=== PATIENT | male | born 1955 | race African-American/Black ===

== ENCOUNTER 2017-02-20 17:52 | Inpatient (IN) | payer OTHER ==
[2017-02-20 20:41] VITALS: BMI 21.6
--- NOTE | 2017-02-20 21:41 | HP ---
COWS - Scale Resting Pulse: 0= [place] 80 or Below Sweatin= Chills/Flushing Restless Observation: 3= Extraneous Movement Pupil Size: 0= Normal to Room Light Bone or Joint Aches: 2= Severe Diffuse Aches Runny Nose/ Eye Tearin= Runny Nose/Eyes GI Upset > 30mins: 2= Nausea/Diarrhea Tremor Observation: 2= Slight Tremor Visible Yawning Observation: 0= None Anxiety or Irritability: 2=Irritable/Anxious Goose Flesh Skin: 0=Smooth Skin COWS Score: 14 Admission [facility] Chief Complaint: withdrawal sx Allergies/Adverse Reactions: Allergies Allergy/AdvReac Type Severity Reaction Status Date / Time No Known Allergies Allergy Verified 02/20/17 21:37 History of Present Illness: 62 years old male with long history of opiate nicotine dependence has hypertension diabetes ii hyperlipidemea denies mental illness is admitted to detox Exam Limitations: No Limitations - Ebola screening Have you traveled outside of the country in the last 21 days: No (N) Have you had contact with anyone from an Ebola affected area: No Have you been sick,other than usual withdrawal symptoms: No Do you have a fever: No - Review of Systems Constitutional: Loss of Appetite, Changes in sleep, Unintentional Wgt. Loss, Unexplained wgt Loss EENT: reports: Blurred Vision (eye glasses), Dental Problems (missing teeth) Respiratory: reports: No Symptoms reported Cardiac: reports: No Symptoms Reported GI: reports: Nausea, Poor Appetite, Poor Fluid Intake, Abdominal cramping : reports: Urgency Musculoskeletal: reports: Back Pain, Joint Pain, Muscle Pain, Neck Pain Integumentary: reports: No Symptoms Reported Neuro: reports: Tremors Endocrine: reports: No Symptoms Reported Hematology: reports: No Symptoms Reported Psychiatric: reports: Judgement Intact, Mood/Affect Appropiate, Orientated x3 Other Systems: Reviewed and Negative Patient History - Patient Medical History Hx Anemia: No Hx Asthma: No Hx Chronic Obstructive Pulmonary Disease (COPD): No Hx Cancer: No Hx Cardiac Disorders: No Hx Congestive Heart Failure: No Hx Hypertension: Yes (ON MEDS) Hx Hypercholesterolemia: Yes Hx Pacemaker: No HX Cerebrovascular Accident: No Hx Seizures: No Hx Dementia: No Hx Diabetes: Yes (NIDDM) Hx Gastrointestinal Disorders: No Hx Liver Disease: No Hx Genitourinary Disorders: No Hx Sexually Transmitted Disorders: No Hx Renal Disease (ESRD): No Hx Thyroid Disease: No Hx Human Immunodeficiency Virus (HIV): No Hx Hepatitis C: No Hx Depression: No Hx Suicide Attempt: No (DENIES) Hx Bipolar Disorder: No Hx Schizophrenia: No - Patient Surgical History Past Surgical History: Yes Hx Neurologic Surgery: No Hx Cataract Extraction: No Hx Cardiac Surgery: No Hx Lung Surgery: No Hx Breast Surgery: No Hx Breast Biopsy: No Hx Abdominal Surgery: No Hx Appendectomy: Yes (at age 17) Hx Cholecystectomy: No Hx Genitourinary Surgery: No Hx Orthopedic Surgery: No Anesthesia Reaction: No - PPD History Previous Implant?: Yes Documented Results: Negative w/o proof Implanted On Prior R Admission?: No Date: 04/01/15 PPD to be Administered?: Yes - Smoking Cessation Smoking history: Current every day smoker Have you smoked in the past 12 months: Yes Aproximately how many cigarettes per day: 7 Cigars Per Day: 0 Hx Chewing Tobacco Use: No Initiated information on smoking cessation: Yes 'Breaking Loose' booklet given: 02/20/17 - Substance & Tx. History Hx Alcohol Use: No Hx Substance Use: Yes Substance Use Type: Cocaine, Opiates Hx Substance Use Treatment: Yes (2014 [facility]) - Substances Abused Heroin Route: Inhalation Frequency: Daily Amount used: 15 bags Age of first use: 12 Date of Last Use: 02/20/17 Family Disease History - Family Disease History Family Disease History: Diabetes: Father (), Heart Disease: Sister, CA: Mother (BREAST-) Admission Physical Exam BHS - Vital Signs Vital Signs: Vital Signs - 24 hr 02/20/17 20:36 Temperature 98.1 F Pulse Rate 61 Respiratory 20 Rate Blood Pressure 116/72 - Physical General Appearance: Yes: Appropriately Dressed, Mild Distress, Thin, Tremorous, Irritable, Sweating, Anxious HEENTM: Yes: Hearing grossly Normal, Normal ENT Inspection, Normocephalic, Normal Voice Respiratory: Yes: Chest Non-Tender, Lungs Clear, Normal Breath Sounds, No Respiratory Distress, No Accessory Muscle Use Neck: Yes: Supple, Trachea in good position Breast: Yes: Breasts Symetrical Cardiology: Yes: Regular Rhythm, Regular Rate, S1, S2 Abdominal: Yes: Non Tender, Soft, Increased Bowel Sounds Genitourinary: Yes: Within Normal Limits Back: Yes: Normal Inspection Musculoskeletal: Yes: full range of Motion, Gait Steady, Back pain, Muscle Pain Extremities: Yes: Normal Inspection, Normal Range of Motion, Non-Tender, Tremors Neurological: Yes: Fully Oriented, Alert, Motor Strength 5/5, Normal Mood/Affect , Normal Response Integumentary: Yes: Warm Lymphatic: Yes: Within Normal Limits - Diagnostic (1) Opioid dependence with withdrawal Current Visit: Yes Status: Acute (2) Essential hypertension Current Visit: Yes Status: Chronic (3) bph Current Visit: Yes Status: Chronic (4) Diabetes mellitus type II, controlled, with no complications Current Visit: Yes Status: Chronic Qualifiers: Diabetes mellitus halfway insulin use: without terminal press operator use Qualified Code(s): E11.9 - Type 2 diabetes mellitus without complications (5) Hyperlipidemia Current Visit: Yes Status: Chronic Qualifiers: Hyperlipidemia type: pure hypercholesterolemia Qualified Code(s): E78.00 - Pure hypercholesterolemia, unspecified; E78.0 - Pure hypercholesterolemia (6) Weight loss Current Visit: Yes Status: Acute (7) Nicotine dependence Current Visit: Yes Status: Acute Qualifiers: Nicotine product type: cigarettes Substance use status: in withdrawal Qualified Code(s): F17.213 - Nicotine dependence, cigarettes, with withdrawal Cleared for Admission [facility] - Detox or Rehab [facility] Level of Care: Medically Managed Detox Regimen/Protocol: Methadone [facility] Breath Alcohol Content Breath Alcohol Content: 0 Urine Drug Screen - Results Drug Screen Negative: No Urine Drug Screen Results: BETTE-Cocaine, OPI-Opiates
[2017-02-20] MEDS ORDERED: diazePAM 5 MG TABLET PO PRN (21:45)
[2017-02-20] MEDS ORDERED: NICOTINE POLACRILEX 2 MG GUM BC PRN (21:45)
[2017-02-20] MEDS ORDERED: METHADONE HCL 10 MG TABLET (FOR DETOX USE ONLY) PO ONE ×2 (21:45→23:00)
[2017-02-20] MEDS ORDERED: MAG HYDROX/AL HYDROX/SIMETH 30 ML UNIT-DOSE CUP PO PRN (21:45)
[2017-02-20] MEDS ORDERED: MENTHOL/PHENOL 1 EACH UD MM PRN (21:45)
[2017-02-20] MEDS ORDERED: LOPERAMIDE HCL 2 MG CAPSULE PO PRN (21:45)
[2017-02-20] MEDS ORDERED: MAGNESIUM CITRATE 300 ML BOTTLE PO PRN (21:45)
[2017-02-20] MEDS ORDERED: diphenhydrAMINE HCL 50 MG CAPSULE PO PRN (21:45)
[2017-02-20] MEDS ORDERED: P-EPHED 60MG/TRIPROLIDI 2.5MG TABLET PO PRN (21:45)
[2017-02-20] MEDS ORDERED: guaiFENesin/D-METHORPHAN HB 10 ML UNIT-DOSE CUPS PO PRN (21:45)
[2017-02-20] MEDS ORDERED: MAGNESIUM HYDROX 2400MG/30ML ORAL SUSPENSION 30 ML CUP PO PRN (21:45)
[2017-02-20] MEDS ORDERED: ACETAMINOPHEN 325 MG TABLET (FP) PO PRN (21:45)
[2017-02-20] MEDS: THIAMINE HCL 100 MG TABLET (FP) PO SCH (23:46)
[2017-02-21] MEDS: INSULIN SLIDING SCALE (NOVOLOG) 1 VIAL SQ SCH ×4 (06:15→22:28)
[2017-02-21] MEDS ORDERED: INSULIN (NOVOLOG) ASPART 100 UNITS/ML 10ML VIAL ONE ×2 (06:16→11:19)
[2017-02-21] MEDS ORDERED: metFORMIN HCL 500 MG TABLET (FP) PO SCH (07:00)
[2017-02-21 09:45] LABS: MCH 31.2 pg (25.7-33.7); MCHC 32.6 g/dl (32.0-35.9); MEAN CELL VOLUME 95.6 fl (80-96); MEAN PLT VOLUME 9.1 fl (7.5-11.1); PLATELET COUNT 215 K/MM3 (134-434); RDW 14.4 % (11.9-15.9); WHITE BLOOD COUNT 4.8 K/mm3 (4.0-10.0)
[2017-02-21] MEDS ORDERED: NICOTINE 14 MG/24 HOURS TOPICAL PATCH TD SCH (10:00)
[2017-02-21] MEDS ORDERED: PRENATAL VITAMINS W/ FOLIC ACID TABLET (FP) PO SCH (10:00)
[2017-02-21] MEDS ORDERED: ENALAPRIL MALEATE 5 MG TABLET (FP) PO SCH (10:00)
[2017-02-21] MEDS ORDERED: ASPIRIN 81 MG CHEWABLE TABLETS PO SCH (10:00)
[2017-02-21] MEDS ORDERED: METHADONE HCL 10 MG TABLET (FOR DETOX USE ONLY) PO ONE (10:00)
[2017-02-21 10:24] LABS: ALBUMIN 3.2 g/dl (3.4-5.0); ALK PHOS 108 U/L (45-117); ANION GAP 6 (8-16); BILIRUBIN,TOTAL 0.5 mg/dL (0.2-1.0); CALCIUM 9.3 mg/dL (8.5-10.1); CO2 32 mmol/L (21-32); CREATININE 1.1 mg/dL (0.7-1.3); SGOT/AST 21 U/L (15-37); SGPT/ALT 36 U/L (12-78); TOT PROT 6.1 g/dl (6.4-8.2)
[2017-02-21 10:40] LABS: GLUCOSE,RANDOM 524 mg/dL (74-106)
[2017-02-21] MEDS: PATIENT'S OWN MEDICATION (NON-FORMULARY) (Sitagliptin Phos/Metformin Hcl [Janumet 50-500 M PO SCH ×2 (11:17→16:48)
--- NOTE | 2017-02-21 11:49 | PN ---
S COWS - Scale Resting Pulse: 0= [place] 80 or Below Sweatin= Chills/Flushing Restless Observation: 3= Extraneous Movement Pupil Size: 2= Moderately Dilated Bone or Joint Aches: 4=Acute Joint/Muscle Pain Runny Nose/ Eye Tearin= Nasal Congestion GI Upset > 30mins: 1= Stomach Cramp Tremor Observation of Outstretched Hands: 1= Tremor [place], Not Seen Yawning Observation: 1= 1-2x During Session Anxiety or Irritability: 2=Irritable/Anxious Goose Flesh Skin: 0=Smooth Skin COWS Score: 16 S Progress Note (SOAP) Subjective: ANXIETY,SWEATS,TREMORS,FATIGUE. Objective: 02/21/17 11:49 Vital Signs Temperature 98.9 F 02/21/17 09:13 Pulse Rate 87 02/21/17 09:13 Respiratory Rate 16 02/21/17 09:13 Blood Pressure 107/72 02/21/17 09:13 O2 Sat by Pulse Oximetry (%) Laboratory Last Values WBC 4.8 K/mm3 (4.0-10.0) 02/21/17 07:00 RBC 4.14 M/mm3 (4.00-5.60) 02/21/17 07:00 Hgb 12.9 GM/dL (11.7-16.9) 02/21/17 07:00 Hct 39.6 % (35.4-49) 02/21/17 07:00 MCV 95.6 fl (80-96) 02/21/17 07:00 MCH 31.2 pg (25.7-33.7) 02/21/17 07:00 MCHC 32.6 g/dl (32.0-35.9) 02/21/17 07:00 RDW 14.4 % (11.9-15.9) 02/21/17 07:00 Plt Count 215 K/MM3 (134-434) 02/21/17 07:00 MPV 9.1 fl (7.5-11.1) 02/21/17 07:00 Sodium 135 mmol/L (136-145) L 02/21/17 07:00 Potassium 5.0 mmol/L (3.5-5.1) 02/21/17 07:00 Chloride 97 mmol/L (98-107) L 02/21/17 07:00 Carbon Dioxide 32 mmol/L (21-32) 02/21/17 07:00 Anion Gap 6 (8-16) L 02/21/17 07:00 BUN 13 mg/dL (7-18) 02/21/17 07:00 Creatinine 1.1 mg/dL (0.7-1.3) D 02/21/17 07:00 Creat Clearance w eGFR > 60 (>60) 02/21/17 07:00 POC Glucometer 334 UNITS (()) 02/21/17 11:16 Random Glucose 524 mg/dL (74-106) H* D 02/21/17 07:00 Calcium 9.3 mg/dL (8.5-10.1) 02/21/17 07:00 Total Bilirubin 0.5 mg/dL (0.2-1.0) D 02/21/17 07:00 AST 21 U/L (15-37) 02/21/17 07:00 ALT 36 U/L (12-78) 02/21/17 07:00 Alkaline Phosphatase 108 U/L (45-117) D 02/21/17 07:00 Total Protein 6.1 g/dl (6.4-8.2) L 02/21/17 07:00 Albumin 3.2 g/dl (3.4-5.0) L D 02/21/17 07:00 Assessment: 02/21/17 11:49 WITHDRAWAL SX Plan: CONTINUE DETOX
--- NOTE | 2017-02-21 12:52 | EKG ---
Test Reason : Blood Pressure : / mmHG Vent. Rate : 054 BPM Atrial Rate : 054 BPM P-R Int : 166 ms QRS Dur : 088 ms QT Int : 430 ms P-R-T Axes : 063 029 045 degrees QTc Int : 407 ms SINUS BRADYCARDIA PROBABLE ATRIAL ABNORMALITY MINIMAL VOLTAGE CRITERIA FOR LVH, MAY BE NORMAL VARIANT BORDERLINE ECG NO PREVIOUS ECGS AVAILABLE REPEAT EKG IF CLINICALLY INDICATED Confirmed by PARMINDER ARCE MD ([id number]) on 02/21/2017 12:52:05 PM Referred By: Confirmed By:PARMINDER ARCE MD
[2017-02-21] MEDS: THIAMINE HCL 100 MG TABLET (FP) PO SCH (22:28)
[2017-02-22] MEDS ORDERED: INSULIN (NOVOLOG MIX 70/30) 100 UNITS/ML MDV SQ SCH (07:00)
[2017-02-22] MEDS ORDERED: INSULIN (NOVOLOG) ASPART 100 UNITS/ML 10ML VIAL ONE (07:25)
[2017-02-22] MEDS: PATIENT'S OWN MEDICATION (NON-FORMULARY) (Sitagliptin Phos/Metformin Hcl [Janumet 50-500 M PO SCH (07:28)
[2017-02-22] MEDS: INSULIN SLIDING SCALE (NOVOLOG) 1 VIAL SQ SCH (07:28)
[2017-02-22 09:55] VITALS: BP 112/78; PULSE 69; TEMP 97.5
[2017-02-22] MEDS ORDERED: METHADONE HCL 5 MG TABLET (FOR DETOX USE ONLY) PO ONE (10:00)
--- NOTE | 2017-02-22 11:02 | DS ---
[facility] Detox Discharge Summary Admission Date: 02/20/17 Discharge Date: 02/22/17 - History Present History: Opioid Dependence Additional Comments: PT DECLINED TO CONTINUE WITH DETOX EXHIBITING LACK OF READINESS FOR TREATMENT DESPITE ALL EFFORTS BY GEOPHYSICAL PROSPECTOR AND COUNSELOR, JUAN TO ENCOURAGE HIM TO COMPLETE AND GO TO THE NEXT STEP OF REHAB. ALERT O X 3. IN NAD. PT WILL HOPEFULLY FOLLOW UP WITH AFTER CARE REFERRED. PT TO FOLLOW UP WITH PMD AT [facility] FOR MEDICAL MANAGEMENT OF HIS COMORBID CONDITIONS. Pertinent Past History: DM HTN HYPERLIPIDEMIA WEIGHT LOSS - Physical Exam Results Vital Signs: Vital Signs Temperature 97.5 F L 02/22/17 09:54 Pulse Rate 69 02/22/17 09:54 Respiratory Rate 18 02/22/17 09:54 Blood Pressure 112/78 02/22/17 09:54 O2 Sat by Pulse Oximetry (%) Pertinent Admission Physical Exam Findings: WITHDRAWAL SX Vital Signs Temperature 97.5 F L 02/22/17 09:54 Pulse Rate 69 02/22/17 09:54 Respiratory Rate 18 02/22/17 09:54 Blood Pressure 112/78 02/22/17 09:54 O2 Sat by Pulse Oximetry (%) Laboratory Last Values WBC 4.8 K/mm3 (4.0-10.0) 02/21/17 07:00 RBC 4.14 M/mm3 (4.00-5.60) 02/21/17 07:00 Hgb 12.9 GM/dL (11.7-16.9) 02/21/17 07:00 Hct 39.6 % (35.4-49) 02/21/17 07:00 MCV 95.6 fl (80-96) 02/21/17 07:00 MCH 31.2 pg (25.7-33.7) 02/21/17 07:00 MCHC 32.6 g/dl (32.0-35.9) 02/21/17 07:00 RDW 14.4 % (11.9-15.9) 02/21/17 07:00 Plt Count 215 K/MM3 (134-434) 02/21/17 07:00 MPV 9.1 fl (7.5-11.1) 02/21/17 07:00 Sodium 135 mmol/L (136-145) L 02/21/17 07:00 Potassium 5.0 mmol/L (3.5-5.1) 02/21/17 07:00 Chloride 97 mmol/L (98-107) L 02/21/17 07:00 Carbon Dioxide 32 mmol/L (21-32) 02/21/17 07:00 Anion Gap 6 (8-16) L 02/21/17 07:00 BUN 13 mg/dL (7-18) 02/21/17 07:00 Creatinine 1.1 mg/dL (0.7-1.3) D 02/21/17 07:00 Creat Clearance w eGFR > 60 (>60) 02/21/17 07:00 POC Glucometer 239 UNITS (()) 02/22/17 05:18 Random Glucose 524 mg/dL (74-106) H* D 02/21/17 07:00 Calcium 9.3 mg/dL (8.5-10.1) 02/21/17 07:00 Total Bilirubin 0.5 mg/dL (0.2-1.0) D 02/21/17 07:00 AST 21 U/L (15-37) 02/21/17 07:00 ALT 36 U/L (12-78) 02/21/17 07:00 Alkaline Phosphatase 108 U/L (45-117) D 02/21/17 07:00 Total Protein 6.1 g/dl (6.4-8.2) L 02/21/17 07:00 Albumin 3.2 g/dl (3.4-5.0) L D 02/21/17 07:00 RPR Titer Nonreactive (NONREACTIVE) 02/21/17 07:00 UA RESULT PENDING - Treatment Hospital Course: Discharged Condition Good - Medication Discharge Medications: Ambulatory Orders Aspirin [ASA -] 81 mg PO DAILY 03/30/15 Enalapril Maleate [Vasotec -] 5 mg PO DAILY 03/30/15 Simvastatin [Zocor -] 20 mg PO HS 03/30/15 Metformin HCl [Glucophage -] 500 mg PO ACBK #30 tablet 04/03/15 Metformin HCl [Glucophage -] 850 mg PO ACDIN #30 tablet 04/03/15 Tamsulosin HCl 0.4 mg PO DAILY #30 cap.er.24h 04/03/15 Sitagliptin Phos/Metformin HCl [Janumet 50-500 mg Tablet] 1 tab PO BID 02/20/17 - Diagnosis (1) Nicotine dependence Status: Acute Qualifiers: Nicotine product type: cigarettes Substance use status: in withdrawal Qualified Code(s): F17.213 - Nicotine dependence, cigarettes, with withdrawal (2) Opioid dependence with withdrawal Status: Acute (3) Diabetes mellitus type II, controlled, with no complications Status: Chronic Qualifiers: Diabetes mellitus intermission coordinator insulin use: without fpc use Qualified Code(s): E11.9 - Type 2 diabetes mellitus without complications (4) Essential hypertension Status: Chronic (5) Hyperlipidemia Status: Chronic Qualifiers: Hyperlipidemia type: pure hypercholesterolemia Qualified Code(s): E78.00 - Pure hypercholesterolemia, unspecified; E78.0 - Pure hypercholesterolemia (6) bph Status: Chronic - AMA Did Patient Leave Against Medical Advice: Yes (AMA)
[2017-02-22 15:14] LABS: URINE APPEARANCE CLEAR; URINE BILIRUBIN NEGATIVE (NEGATIVE); URINE BLOOD NEGATIVE (NEGATIVE); URINE COLOR YELLOW; URINE GLUCOSE (UA) 3+ (NEGATIVE); URINE KETONE TRACE (NEGATIVE); URINE LEUK ESTERASE NEGATIVE (NEGATIVE); URINE NITRITE NEGATIVE (NEGATIVE); URINE PROTEIN NEGATIVE (NEGATIVE); URINE UROBILINOGEN NEGATIVE mg/dL (0.2-1.0)
[2017-02-23] MEDS ORDERED: METHADONE HCL 5 MG TABLET (FOR DETOX USE ONLY) PO ONE (10:00)
[2017-02-24] MEDS ORDERED: METHADONE HCL 10 MG TABLET (FOR DETOX USE ONLY) PO ONE (10:00)
[2017-02-25] MEDS ORDERED: METHADONE HCL 5 MG TABLET (FOR DETOX USE ONLY) PO ONE (06:00)
== END 2017-02-22 10:03 | disposition left against medical advice (07) | DRG 770 ==
LOC: YASAS 17:52 → Y3N 22:39
PROVIDERS: ADMIT Internal Medicine; ATTEND Internal Medicine
PROC: HZ2ZZZZ Detoxification Services for Substance Abuse Treatment (ICD-10-PCS; principal; 2017-02-20)
DX: F11.23 Opioid dependence with withdrawal (principal); F17.213 Nicotine dependence, cigarettes, with withdrawal; E11.9 Type 2 diabetes mellitus without complications; Z79.84 Long term (current) use of oral hypoglycemic drugs; E78.00 Pure hypercholesterolemia, unspecified; N40.0 Benign prostatic hyperplasia without lower urinary tract symptoms
CPT/HCPCS: 36415; 71020-TC; 80053; 81003; 85027; 86593; 93005; 93010

== ENCOUNTER 2018-01-03 14:33 | Inpatient (IN) | payer OTHER ==
[2018-01-03 16:59] VITALS: BMI 24.3
--- NOTE | 2018-01-03 18:52 | HP ---
COWS - Scale Resting Pulse: 1= [place] 81-100 Sweatin= Chills/Flushing Restless Observation: 1= Difficult to Sit Still Pupil Size: 0= Normal to Room Light Bone or Joint Aches: 0= None Runny Nose/ Eye Tearin= Runny Nose/Eyes GI Upset > 30mins: 0= None Tremor Observation: 1= Tremor [place], Not Seen Yawning Observation: 2= >3x During Session Anxiety or Irritability: 2=Irritable/Anxious Goose Flesh Skin: 3=Piloe[place] COWS Score: 13 Admission ROS [facility] Chief Complaint: opioid withdrawal symptoms Allergies/Adverse Reactions: Allergies Allergy/AdvReac Type Severity Reaction Status Date / Time No Known Allergies Allergy Verified 01/03/18 16:41 History of Present Illness: 62 yo male with hx of heroin, and nicotine dependence is here seeking detox, patient has has prior admission to [facility]. Last detox [facility] 02/20/17 -02/22/17 left AMA. PMHX: DM II, HTN, denies any psychiatric problems. Denies suicidal / homicidal ideation or hx of suicide attempts. Denies hx of seizure, blackouts or overdose. Longest period of sobriety 15 years. Exam Limitations: No Limitations - Ebola screening Have you traveled outside of the country in the last 21 days: No (N) Have you had contact with anyone from an Ebola affected area: No Have you been sick,other than usual withdrawal symptoms: No Do you have a fever: No - Review of Systems Constitutional: Chills, Changes in sleep, Unintentional Wgt. Loss (20 lbs) EENT: reports: No Symptoms Reported Respiratory: reports: No Symptoms reported Cardiac: reports: No Symptoms Reported GI: reports: Poor Fluid Intake : reports: No Symptoms Reported Musculoskeletal: reports: Back Pain Integumentary: reports: No Symptoms Reported Neuro: reports: Dizziness Endocrine: reports: Increased Thirst Hematology: reports: No Symptoms Reported Psychiatric: reports: Orientated x3, Anxious Other Systems: Reviewed and Negative Patient History - Patient Medical History Hx Anemia: No Hx Asthma: No Hx Chronic Obstructive Pulmonary Disease (COPD): No Hx Cancer: No Hx Cardiac Disorders: No Hx Congestive Heart Failure: No Hx Hypertension: Yes Hx Hypercholesterolemia: Yes Hx Pacemaker: No HX Cerebrovascular Accident: No Hx Seizures: No Hx Dementia: No Hx Diabetes: Yes (IDDM) Hx Gastrointestinal Disorders: No Hx Liver Disease: No Hx Genitourinary Disorders: No Hx Sexually Transmitted Disorders: No Hx Renal Disease (ESRD): No Hx Thyroid Disease: No Hx Human Immunodeficiency Virus (HIV): No (last tested 6 months ago ) Hx Hepatitis C: No Hx Depression: No Hx Suicide Attempt: No Hx Bipolar Disorder: No Hx Schizophrenia: No - Patient Surgical History Past Surgical History: Yes Hx Neurologic Surgery: No Hx Cataract Extraction: No Hx Cardiac Surgery: No Hx Lung Surgery: No Hx Breast Surgery: No Hx Breast Biopsy: No Hx Abdominal Surgery: No Hx Appendectomy: Yes (at age 17) Hx Cholecystectomy: No Hx Genitourinary Surgery: No Hx Section: No Hx Orthopedic Surgery: No Anesthesia Reaction: No - PPD History Previous Implant?: Yes (last Cxray 02/2017 NEG ) Documented Results: Positive w/o proof Implanted On Prior [facility] Admission?: Yes Date: 04/01/15 Results: 15 mm PPD to be Administered?: No - Smoking Cessation Smoking history: Current every day smoker Have you smoked in the past 12 months: Yes Aproximately how many cigarettes per day: 3 Cigars Per Day: 0 Hx Chewing Tobacco Use: No Initiated information on smoking cessation: Yes 'Breaking Loose' booklet given: 01/03/18 - Substance & Tx. History Hx Alcohol Use: Yes Hx Substance Use: Yes Substance Use Type: Heroin Hx Substance Use Treatment: Yes (Last detox [facility] 02/20/17 -02/22/17 left AMA.) - Substances Abused Heroin Route: Inhalation Frequency: Daily Amount used: 2-5 bags Age of first use: 12 Date of Last Use: 01/03/18 Family Disease History - Family Disease History Family Disease History: Diabetes: Father (), Heart Disease: Sister, CA: Mother (BREAST-) Admission Physical Exam BHS - Vital Signs Vital Signs: Vital Signs - 24 hr 01/03/18 16:46 Temperature 98.8 F Pulse Rate 90 Respiratory 18 Rate Blood Pressure 128/85 - Physical General Appearance: Yes: Mild Distress, Thin, Anxious, Other (malodorous) HEENTM: Yes: EOMI, Hearing grossly Normal, Normal ENT Inspection, Normocephalic , Normal Voice, [place], Pharynx Normal, Tm's normal Respiratory: Yes: Chest Non-Tender, Lungs Clear, Normal Breath Sounds, No Respiratory Distress, No Accessory Muscle Use Neck: Yes: Within Normal Limits Breast: Yes: Breast Exam Deferred Cardiology: Yes: Regular Rhythm, Regular Rate Abdominal: Yes: Normal Bowel Sounds, Non Tender, Flat, Soft Genitourinary: Yes: Within Normal Limits Back: Yes: Normal Inspection Musculoskeletal: Yes: full range of Motion, Gait Steady, Pelvis Stable, Back pain Extremities: Yes: Normal Capillary Refill, Normal Inspection, Normal Range of Motion, Non-Tender Neurological: Yes: campus security director II-XII NML intact, Fully Oriented, Alert, Motor Strength 5/5, Normal Response, Depressed Affect Integumentary: Yes: Normal Color, Warm, Moist Lymphatic: Yes: Within Normal Limits - Diagnostic (1) Diabetes mellitus with hyperglycemia, with long-term current use of insulin Current Visit: Yes Status: Chronic Qualifiers: Diabetes mellitus type: type 2 Qualified Code(s): E11.65 - Type 2 diabetes mellitus with hyperglycemia; Z79.4 - jail (current) use of insulin (2) Nicotine dependence Current Visit: Yes Status: Acute Qualifiers: Nicotine product type: cigarettes Substance use status: in withdrawal Qualified Code(s): F17.213 - Nicotine dependence, cigarettes, with withdrawal (3) Opioid dependence with withdrawal Current Visit: Yes Status: Acute (4) Weight loss Current Visit: Yes Status: Acute (5) Essential hypertension Current Visit: Yes Status: Chronic (6) Hyperlipidemia Current Visit: Yes Status: Chronic Qualifiers: Hyperlipidemia type: pure hypercholesterolemia Qualified Code(s): E78.00 - Pure hypercholesterolemia, unspecified (7) bph Current Visit: Yes Status: Chronic Cleared for Admission [facility] - Detox or Rehab [facility] Level of Care: Medically Managed Detox Regimen/Protocol: Methadone [facility] Breath Alcohol Content Breath Alcohol Content: 0 Urine Drug Screen - Results Drug Screen Negative: No Urine Drug Screen Results: OPI-Opiates
[2018-01-03] MEDS ORDERED: P-EPHED 60MG/TRIPROLIDI 2.5MG TABLET PO PRN (18:57)
[2018-01-03] MEDS ORDERED: LOPERAMIDE HCL 2 MG CAPSULE PO PRN (18:57)
[2018-01-03] MEDS ORDERED: IBUPROFEN 400 MG TABLET (FP) PO PRN (18:57)
[2018-01-03] MEDS ORDERED: METHADONE HCL 10 MG TABLET (FOR DETOX USE ONLY) PO ONE ×2 (18:57→23:00)
[2018-01-03] MEDS ORDERED: MAGNESIUM CITRATE 300 ML BOTTLE PO PRN (18:57)
[2018-01-03] MEDS ORDERED: ACETAMINOPHEN 325 MG TABLET (FP) PO PRN (18:57)
[2018-01-03] MEDS ORDERED: MAG HYDROX/AL HYDROX/SIMETH 30 ML UNIT-DOSE CUP PO PRN (18:57)
[2018-01-03] MEDS ORDERED: MAGNESIUM HYDROX 2400MG/30ML ORAL SUSPENSION 30 ML CUP PO PRN (18:57)
[2018-01-03] MEDS ORDERED: NICOTINE POLACRILEX 2 MG GUM BUC PRN (18:57)
[2018-01-03] MEDS ORDERED: MENTHOL/PHENOL 1 EACH UD MM PRN (18:57)
[2018-01-03] MEDS ORDERED: guaiFENesin/D-METHORPHAN HB 10 ML UNIT-DOSE CUPS PO PRN (18:57)
[2018-01-03] MEDS ORDERED: MELATONIN 5 MG TABLETS PO PRN (22:00)
[2018-01-03] MEDS: THIAMINE HCL 100 MG TABLET (FP) PO SCH (22:45)
[2018-01-04 01:47] LABS: URINE APPEARANCE CLEAR; URINE BILIRUBIN NEGATIVE (<2.0 mg/dL); URINE COLOR LTYELLOW; URINE GLUCOSE (UA) 3+ (NEGATIVE); URINE KETONE 2+ (NEGATIVE); URINE LEUK ESTERASE NEGATIVE (NEGATIVE); URINE NITRITE NEGATIVE (NEGATIVE); URINE PROTEIN NEGATIVE (NEGATIVE); URINE UROBILINOGEN NEGATIVE mg/dL (0.2-1.0)
[2018-01-04 01:54] LABS: URINE HYALINE CAST 6 /lpf
[2018-01-04] MEDS: diazePAM 5 MG TABLET PO PRN ×2 (05:38→10:11)
[2018-01-04] MEDS: INSULIN (NOVOLOG) ASPART 100 UNITS/ML 10ML VIAL SQ SCH ×4 (07:00→21:59)
[2018-01-04 09:58] LABS: HEMATOCRIT 48.7 % (35.4-49); HEMOGLOBIN 15.8 GM/dL (11.7-16.9); MCH 31.6 pg (25.7-33.7); MCHC 32.4 g/dl (32.0-35.9); MEAN CELL VOLUME 97.5 fl (80-96); PLATELET COUNT 219 K/MM3 (134-434); RBC 4.99 M/mm3 (4.00-5.60); RDW 13.7 % (11.9-15.9); WHITE BLOOD COUNT 4.3 K/mm3 (4.0-10.0)
--- NOTE | 2018-01-04 09:58 | CONSULT ---
[facility] Psychiatric Consult - Data Date of interview: 01/04/18 Admission source: [facility] Identifying data: 62 yo male with hx of heroin, and nicotine dependence is here seeking detox, patient has has prior admission to [facility]. Last detox [facility] 02/20/17 -02/22/17 left AMA. PMHX: DM II, HTN, denies any psychiatric problems. Denies suicidal / homicidal ideation or hx of suicide attempts. Denies hx of seizure, blackouts or overdose. Longest period of sobriety 15 years. Substance Abuse History: - Smoking Cessation. Smoking history: Current every day smoker. Have you smoked in the past 12 months: Yes. Aproximately how many cigarettes per day: 3. Cigars Per Day: 0. Hx Chewing Tobacco Use: No. Initiated information on smoking cessation: Yes. 'Breaking Loose' booklet given : 01/03/18. - Substance & Tx. History. Hx Alcohol Use: Yes. Hx Substance Use : Yes. Substance Use Type: Heroin. Hx Substance Use Treatment: Yes (Last detox [facility] 02/20/17 -02/22/17 left AMA.). - Substances Abused. Heroin. Route : Inhalation. Frequency: Daily. Amount used: 2-5 bags. Age of first use: 12. Date of Last Use: 01/03/18 Medical History: DM, Weight loss history, HTN.Hyperliopidemia Psychiatric History: Patient denies past psychiatic history Physical/Sexual Abuse/Trauma History: Denies Additional Comment: Observation. Detox Unit Care Protocol Mental Status Exam - Mental Status Exam Alert and Oriented to: Person Cognitive Function: Fair Patient Appearance: Unkempt Mood: Sad Affect: Flat Patient Behavior: Sedated Speech Pattern: Delayed Voice Loudness: Mildly Soft/Quiet Thought Process: Circumstantial Thought Disorder: Being Controlled Hallucinations: Denies Suicidal Ideation: Denies Homicidal Ideation: Denies Insight/Judgement: Fair Sleep: Difficulty falling asleep Appetite: Weight loss Muscle strength/Tone: Mild Hypotonicity Gait/Station: Shuffling Additional Comments: - Smoking Cessation. Smoking history: Current every day smoker. Have you smoked in the past 12 months: Yes. Aproximately how many cigarettes per day: 3. Cigars Per Day: 0. Hx Chewing Tobacco Use: No. Initiated information on smoking cessation: Yes. 'Breaking Loose' booklet given : 01/03/18. - Substance & Tx. History. Hx Alcohol Use: Yes. Hx Substance Use : Yes. Substance Use Type: Heroin. Hx Substance Use Treatment: Yes (Last detox [facility] 02/20/17 -02/22/17 left AMA.). - Substances Abused. Heroin. Route : Inhalation. Frequency: Daily. Amount used: 2-5 bags. Age of first use: 12. Date of Last Use: 01/03/18 Psychiatric Findings - Problem List ([place] 1, 2,3) (1) Nicotine dependence Current Visit: Yes Status: Acute Qualifiers: Nicotine product type: cigarettes Substance use status: in withdrawal Qualified Code(s): F17.213 - Nicotine dependence, cigarettes, with withdrawal (2) Opioid dependence with withdrawal Current Visit: Yes Status: Acute (3) Weight loss Current Visit: Yes Status: Acute (4) Essential hypertension Current Visit: Yes Status: Chronic (5) Diabetes mellitus type II, controlled, with no complications Current Visit: No Status: Chronic Qualifiers: Diabetes mellitus oysterman insulin use: without oysterman use Qualified Code(s): E11.9 - Type 2 diabetes mellitus without complications - Initial Treatment Plan Initial Treatment Plan: - Smoking Cessation. Smoking history: Current every day smoker. Have you smoked in the past 12 months: Yes. Aproximately how many cigarettes per day: 3. Cigars Per Day: 0. Hx Chewing Tobacco Use: No. Initiated information on smoking cessation: Yes. 'Breaking Loose' booklet given : 01/03/18. - Substance & Tx. History. Hx Alcohol Use: Yes. Hx Substance Use : Yes. Substance Use Type: Heroin. Hx Substance Use Treatment: Yes (Last detox [facility] 02/20/17 -02/22/17 left AMA.). - Substances Abused. Heroin. Route : Inhalation. Frequency: Daily. Amount used: 2-5 bags. Age of first use: 12. Date of Last Use: 01/03/18
[2018-01-04] MEDS ORDERED: METHADONE HCL 10 MG TABLET (FOR DETOX USE ONLY) PO ONE (10:00)
[2018-01-04] MEDS ORDERED: ENALAPRIL MALEATE 5 MG TABLET (FP) PO SCH (10:00)
[2018-01-04] MEDS: PRENATAL VITAMINS W/ FOLIC ACID TABLET (FP) PO SCH (10:11)
[2018-01-04] MEDS: ASPIRIN 81 MG CHEWABLE TABLETS PO SCH (10:11)
[2018-01-04] MEDS: TAMSULOSIN HCL 0.4 MG CAP.ER.24H (FP) PO SCH (10:11)
[2018-01-04 10:15] LABS: CHLORIDE 97 mmol/L (98-107); POTASSIUM 4.9 mmol/L (3.5-5.1); SODIUM 135 mmol/L (136-145)
[2018-01-04 10:19] LABS: ALBUMIN 4.2 g/dl (3.4-5.0); ALK PHOS 112 U/L (45-117); ANION GAP 16 (8-16); BILIRUBIN,TOTAL 0.6 mg/dL (0.2-1.0); BLOOD UREA NITROGEN 24 mg/dL (7-18); CALCIUM 9.8 mg/dL (8.5-10.1); CO2 22 mmol/L (21-32); CREATININE 1.7 mg/dL (0.7-1.3); SGOT/AST 22 U/L (15-37); SGPT/ALT 58 U/L (12-78); TOT PROT 7.7 g/dl (6.4-8.2)
[2018-01-04 11:19] LABS: GLUCOSE,RANDOM 429 mg/dL (74-106)
--- NOTE | 2018-01-04 11:51 | PN ---
[facility] COWS - Scale Resting Pulse: 2= ID [id number] Sweatin= Chills/Flushing Restless Observation: 3= Extraneous Movement Pupil Size: 1= Pupils >than Normal Bone or Joint Aches: 2= Severe Diffuse Aches Runny Nose/ Eye Tearin= Runny Nose/Eyes GI Upset > 30mins: 3= Vomiting/Diarrhea Tremor Observation of Outstretched Hands: 2= Slight Tremor Visible Yawning Observation: 1= 1-2x During Session Anxiety or Irritability: 2=Irritable/Anxious Goose Flesh Skin: 0=Smooth Skin COWS Score: 19 S Progress Note (SOAP) Subjective: alert,irritable,anxious,interrupted sleep,pain in the body and back Objective: 01/04/18 11:46 Vital Signs Temperature 97.3 F L 01/04/18 10:02 Pulse Rate 109 H 01/04/18 10:02 Respiratory Rate 16 01/04/18 10:02 Blood Pressure 103/76 01/04/18 10:02 O2 Sat by Pulse Oximetry (%) ekg sinus bradycardia 59/min qt/qtc 416/411 no chest pain,no sob,no dizziness Laboratory Last Values WBC 4.3 K/mm3 (4.0-10.0) 01/04/18 08:00 RBC 4.99 M/mm3 (4.00-5.60) 01/04/18 08:00 Hgb 15.8 GM/dL (11.7-16.9) 01/04/18 08:00 Hct 48.7 % (35.4-49) D 01/04/18 08:00 MCV 97.5 fl (80-96) H 01/04/18 08:00 MCH 31.6 pg (25.7-33.7) 01/04/18 08:00 MCHC 32.4 g/dl (32.0-35.9) 01/04/18 08:00 RDW 13.7 % (11.9-15.9) 01/04/18 08:00 Plt Count 219 K/MM3 (134-434) 01/04/18 08:00 MPV 10.0 fl (7.5-11.1) 01/04/18 08:00 Sodium 135 mmol/L (136-145) L 01/04/18 08:00 Potassium 4.9 mmol/L (3.5-5.1) 01/04/18 08:00 Chloride 97 mmol/L (98-107) L 01/04/18 08:00 Carbon Dioxide 22 mmol/L (21-32) D 01/04/18 08:00 Anion Gap 16 (8-16) 01/04/18 08:00 BUN 24 mg/dL (7-18) H 01/04/18 08:00 Creatinine 1.7 mg/dL (0.7-1.3) H 01/04/18 08:00 Creat Clearance w eGFR 41.04 (>60) 01/04/18 08:00 POC Glucometer 558 UNITS (80-120) 01/04/18 05:34 Random Glucose 429 mg/dL (74-106) H* 01/04/18 08:00 Calcium 9.8 mg/dL (8.5-10.1) 01/04/18 08:00 Total Bilirubin 0.6 mg/dL (0.2-1.0) 01/04/18 08:00 AST 22 U/L (15-37) 01/04/18 08:00 ALT 58 U/L (12-78) D 01/04/18 08:00 Alkaline Phosphatase 112 U/L (45-117) 01/04/18 08:00 Total Protein 7.7 g/dl (6.4-8.2) 01/04/18 08:00 Albumin 4.2 g/dl (3.4-5.0) 01/04/18 08:00 Urine Color Ltyellow 01/03/18 01:30 Urine Appearance Clear 01/03/18 01:30 Urine pH 5.0 (5.0-8.0) 01/03/18 01:30 Ur Specific [place] 1.021 (1.001-1.035) 01/03/18 01:30 Urine Protein Negative (NEGATIVE) 01/03/18 01:30 Urine Glucose (UA) 3+ (NEGATIVE) H 01/03/18 01:30 Urine Ketones 2+ (NEGATIVE) H 01/03/18 01:30 Urine Blood 1+ (NEGATIVE) H 01/03/18 01:30 Urine Nitrite Negative (NEGATIVE) 01/03/18 01:30 Urine Bilirubin Negative (<2.0 mg/dL) 01/03/18 01:30 Urine Urobilinogen Negative mg/dL (0.2-1.0) 01/03/18 01:30 Ur Leukocyte Esterase Negative (NEGATIVE) 01/03/18 01:30 Urine WBC (Auto) <1 /hpf (3-5) 01/03/18 01:30 Urine RBC (Auto) <1 /hpf (0-3) 01/03/18 01:30 Hyaline Casts 6 /lpf 01/03/18 01:30 RPR Titer Nonreactive (NONREACTIVE) 01/04/18 08:00 Assessment: 01/04/18 11:49 withdrawal symptom Plan: continue detox,hba1c,bgm achs with insulin coverage,encourage oral fluid water
[2018-01-04] MEDS ORDERED: INSULIN (NOVOLOG) ASPART 100 UNITS/ML 10ML VIAL SQ ONE (11:52)
--- NOTE | 2018-01-04 14:35 | EKG ---
Test Reason : Blood Pressure : / mmHG Vent. Rate : 059 BPM Atrial Rate : 059 BPM P-R Int : 160 ms QRS Dur : 080 ms QT Int : 416 ms P-R-T Axes : 072 -30 055 degrees QTc Int : 411 ms SINUS BRADYCARDIA POSSIBLE LEFT ATRIAL ENLARGEMENT LEFT AXIS DEVIATION ABNORMAL ECG WHEN COMPARED WITH ECG OF 20-FEB-2017 23:52, QRS AXIS SHIFTED LEFT Confirmed by ALFREDITO CHAKRABORTY, LIZA ([id number]) on 01/04/2018 2:35:33 PM Referred By: Confirmed By:LIZA GLASER MD
[2018-01-04] MEDS ORDERED: INSULIN (NOVOLOG) ASPART 100 UNITS/ML 10ML VIAL ONE ×2 (16:54→21:54)
[2018-01-04] MEDS: THIAMINE HCL 100 MG TABLET (FP) PO SCH (22:00)
--- NOTE | 2018-01-04 22:13 | PN ---
[facility] Progress Note Note: Vital Signs Temperature 97.3 F L 01/04/18 22:05 Pulse Rate 94 H 01/04/18 22:05 Respiratory Rate 16 01/04/18 22:05 Blood Pressure 78/47 01/04/18 22:05 O2 Sat by Pulse Oximetry (%) Laboratory Last Values WBC 4.3 K/mm3 (4.0-10.0) 01/04/18 08:00 RBC 4.99 M/mm3 (4.00-5.60) 01/04/18 08:00 Hgb 15.8 GM/dL (11.7-16.9) 01/04/18 08:00 Hct 48.7 % (35.4-49) D 01/04/18 08:00 MCV 97.5 fl (80-96) H 01/04/18 08:00 MCH 31.6 pg (25.7-33.7) 01/04/18 08:00 MCHC 32.4 g/dl (32.0-35.9) 01/04/18 08:00 RDW 13.7 % (11.9-15.9) 01/04/18 08:00 Plt Count 219 K/MM3 (134-434) 01/04/18 08:00 MPV 10.0 fl (7.5-11.1) 01/04/18 08:00 Sodium 135 mmol/L (136-145) L 01/04/18 08:00 Potassium 4.9 mmol/L (3.5-5.1) 01/04/18 08:00 Chloride 97 mmol/L (98-107) L 01/04/18 08:00 Carbon Dioxide 22 mmol/L (21-32) D 01/04/18 08:00 Anion Gap 16 (8-16) 01/04/18 08:00 BUN 24 mg/dL (7-18) H 01/04/18 08:00 Creatinine 1.7 mg/dL (0.7-1.3) H 01/04/18 08:00 Creat Clearance w eGFR 41.04 (>60) 01/04/18 08:00 POC Glucometer 390 UNITS (80-120) 01/04/18 21:42 Random Glucose 429 mg/dL (74-106) H* 01/04/18 08:00 Calcium 9.8 mg/dL (8.5-10.1) 01/04/18 08:00 Total Bilirubin 0.6 mg/dL (0.2-1.0) 01/04/18 08:00 AST 22 U/L (15-37) 01/04/18 08:00 ALT 58 U/L (12-78) D 01/04/18 08:00 Alkaline Phosphatase 112 U/L (45-117) 01/04/18 08:00 Total Protein 7.7 g/dl (6.4-8.2) 01/04/18 08:00 Albumin 4.2 g/dl (3.4-5.0) 01/04/18 08:00 Urine Color Ltyellow 01/03/18 01:30 Urine Appearance Clear 01/03/18 01:30 Urine pH 5.0 (5.0-8.0) 01/03/18 01:30 Ur Specific [place] 1.021 (1.001-1.035) 01/03/18 01:30 Urine Protein Negative (NEGATIVE) 01/03/18 01:30 Urine Glucose (UA) 3+ (NEGATIVE) H 01/03/18 01:30 Urine Ketones 2+ (NEGATIVE) H 01/03/18 01:30 Urine Blood 1+ (NEGATIVE) H 01/03/18 01:30 Urine Nitrite Negative (NEGATIVE) 01/03/18 01:30 Urine Bilirubin Negative (<2.0 mg/dL) 01/03/18 01:30 Urine Urobilinogen Negative mg/dL (0.2-1.0) 01/03/18 01:30 Ur Leukocyte Esterase Negative (NEGATIVE) 01/03/18 01:30 Urine WBC (Auto) <1 /hpf (3-5) 01/03/18 01:30 Urine RBC (Auto) <1 /hpf (0-3) 01/03/18 01:30 Hyaline Casts 6 /lpf 01/03/18 01:30 RPR Titer Nonreactive (NONREACTIVE) 01/04/18 08:00 Repeat labs pending Patient evaluated by the bedside. Patient reports occasional periods of dizziness, but at this times reports feeling a bit tire. Patient Aox3, no distress, no changes in LOC no JVD no adventitious breath sounds full ROM, ambulating in the unit Plan: repeat labs pending repeat v/s in 30 min BP reading low, lisinopril decrease from 5mg to 2.5 mg continue to monitor
[2018-01-05] MEDS: INSULIN (NOVOLOG) ASPART 100 UNITS/ML 10ML VIAL SQ SCH ×6 (08:00→21:44)
[2018-01-05] MEDS ORDERED: INSULIN (NOVOLOG) ASPART 100 UNITS/ML 10ML VIAL ONE ×3 (08:21→21:44)
--- NOTE | 2018-01-05 09:53 | PN ---
[facility] COWS - Scale Resting Pulse: 0= [place] 80 or Below Sweatin= Chills/Flushing Restless Observation: 3= Extraneous Movement Pupil Size: 1= Pupils >than Normal Bone or Joint Aches: 2= Severe Diffuse Aches Runny Nose/ Eye Tearin= Runny Nose/Eyes GI Upset > 30mins: 2= Nausea/Diarrhea Tremor Observation of Outstretched Hands: 2= Slight Tremor Visible Yawning Observation: 1= 1-2x During Session Anxiety or Irritability: 2=Irritable/Anxious Goose Flesh Skin: 0=Smooth Skin COWS Score: 16 [facility] Progress Note (SOAP) Subjective: alert,irritable,anxious,interrupted sleep,pain in the body and back Objective: 01/05/18 09:52 Vital Signs Temperature 97.3 F L 01/05/18 09:25 Pulse Rate 93 H 01/05/18 09:25 Respiratory Rate 18 01/05/18 09:25 Blood Pressure 92/58 01/05/18 09:25 O2 Sat by Pulse Oximetry (%) Laboratory Last Values WBC 4.3 K/mm3 (4.0-10.0) 01/04/18 08:00 RBC 4.99 M/mm3 (4.00-5.60) 01/04/18 08:00 Hgb 15.8 GM/dL (11.7-16.9) 01/04/18 08:00 Hct 48.7 % (35.4-49) D 01/04/18 08:00 MCV 97.5 fl (80-96) H 01/04/18 08:00 MCH 31.6 pg (25.7-33.7) 01/04/18 08:00 MCHC 32.4 g/dl (32.0-35.9) 01/04/18 08:00 RDW 13.7 % (11.9-15.9) 01/04/18 08:00 Plt Count 219 K/MM3 (134-434) 01/04/18 08:00 MPV 10.0 fl (7.5-11.1) 01/04/18 08:00 Sodium 135 mmol/L (136-145) L 01/04/18 08:00 Potassium 4.9 mmol/L (3.5-5.1) 01/04/18 08:00 Chloride 97 mmol/L (98-107) L 01/04/18 08:00 Carbon Dioxide 22 mmol/L (21-32) D 01/04/18 08:00 Anion Gap 16 (8-16) 01/04/18 08:00 BUN 24 mg/dL (7-18) H 01/04/18 08:00 Creatinine 1.7 mg/dL (0.7-1.3) H 01/04/18 08:00 Creat Clearance w eGFR 41.04 (>60) 01/04/18 08:00 POC Glucometer 257 UNITS (80-120) 01/05/18 06:09 Random Glucose 429 mg/dL (74-106) H* 01/04/18 08:00 Calcium 9.8 mg/dL (8.5-10.1) 01/04/18 08:00 Total Bilirubin 0.6 mg/dL (0.2-1.0) 01/04/18 08:00 AST 22 U/L (15-37) 01/04/18 08:00 ALT 58 U/L (12-78) D 01/04/18 08:00 Alkaline Phosphatase 112 U/L (45-117) 01/04/18 08:00 Total Protein 7.7 g/dl (6.4-8.2) 01/04/18 08:00 Albumin 4.2 g/dl (3.4-5.0) 01/04/18 08:00 Urine Color Ltyellow 01/03/18 01:30 Urine Appearance Clear 01/03/18 01:30 Urine pH 5.0 (5.0-8.0) 01/03/18 01:30 Ur Specific [place] 1.021 (1.001-1.035) 01/03/18 01:30 Urine Protein Negative (NEGATIVE) 01/03/18 01:30 Urine Glucose (UA) 3+ (NEGATIVE) H 01/03/18 01:30 Urine Ketones 2+ (NEGATIVE) H 01/03/18 01:30 Urine Blood 1+ (NEGATIVE) H 01/03/18 01:30 Urine Nitrite Negative (NEGATIVE) 01/03/18 01:30 Urine Bilirubin Negative (<2.0 mg/dL) 01/03/18 01:30 Urine Urobilinogen Negative mg/dL (0.2-1.0) 01/03/18 01:30 Ur Leukocyte Esterase Negative (NEGATIVE) 01/03/18 01:30 Urine WBC (Auto) <1 /hpf (3-5) 01/03/18 01:30 Urine RBC (Auto) <1 /hpf (0-3) 01/03/18 01:30 Hyaline Casts 6 /lpf 01/03/18 01:30 RPR Titer Nonreactive (NONREACTIVE) 01/04/18 08:00 Assessment: 01/05/18 09:52 withdrawal symptom Plan: continue detox,bgm monitoring with insulin coverage
[2018-01-05] MEDS ORDERED: METHADONE HCL 5 MG TABLET (FOR DETOX USE ONLY) PO ONE (10:00)
[2018-01-05 10:06] LABS: ANION GAP 11 (8-16); BLOOD UREA NITROGEN 22 mg/dL (7-18); CHLORIDE 100 mmol/L (98-107); CO2 24 mmol/L (21-32); CREATININE 1.1 mg/dL (0.7-1.3); SODIUM 135 mmol/L (136-145)
[2018-01-05] MEDS: TAMSULOSIN HCL 0.4 MG CAP.ER.24H (FP) PO SCH (10:07)
[2018-01-05] MEDS: ENALAPRIL MALEATE 5 MG TABLET (FP) PO SCH (10:07)
[2018-01-05] MEDS: PRENATAL VITAMINS W/ FOLIC ACID TABLET (FP) PO SCH (10:07)
[2018-01-05] MEDS: ASPIRIN 81 MG CHEWABLE TABLETS PO SCH (10:07)
[2018-01-05 10:30] LABS: GLUCOSE,RANDOM 319 mg/dL (74-106)
[2018-01-05 10:35] LABS: POTASSIUM 5.4 mmol/L (3.5-5.1)
--- NOTE | 2018-01-05 16:14 | PN ---
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
[2018-01-05] MEDS ORDERED: sitaGLIPtin PHOSPHATE 50 MG TABLET PO SCH (16:30)
[2018-01-05] MEDS: metFORMIN HCL 500 MG TABLET (FP) PO SCH (16:44)
--- NOTE | 2018-01-05 16:54 | PN ---
[facility] Progress Note Note: k is 5.4,bun 22,creatinine 1.1,will give kayexylate 15 gram po one dose, hydration,repeat cmp in am
[2018-01-05] MEDS ORDERED: SODIUM POLYSTYRENE SULFONATE 15 GM/60 ML BOTTLE PO ONE (17:00)
--- NOTE | 2018-01-05 17:58 | PN ---
[facility] Progress Note Note: Received call from nurse to indicate patients current blood pressure of 68/44. Patient is alert and denies any dizziness. Vital Signs - 24 hr 01/04/18 01/05/18 01/05/18 22:05 00:30 03:30 Temperature 97.3 F L Pulse Rate 94 H Respiratory 16 18 16 Rate Blood Pressure 78/47 01/05/18 01/05/18 01/05/18 06:42 09:25 13:43 Temperature 97.5 F L 97.3 F L 96.6 F L Pulse Rate 63 93 H 109 H Respiratory 18 18 18 Rate Blood Pressure 121/80 92/58 Patient is to increase water intake (1 pitcher in next hour) . Patient is to lay in bed w/ feet elevated. Repeat blood pressure in 30 minutes and notify provider.
[2018-01-05] MEDS: THIAMINE HCL 100 MG TABLET (FP) PO SCH (21:42)
[2018-01-06] MEDS: sitaGLIPtin PHOSPHATE 100 MG TABLET (FP) PO SCH (06:08)
[2018-01-06] MEDS: metFORMIN HCL 500 MG TABLET (FP) PO SCH ×2 (06:08→17:59)
[2018-01-06] MEDS ORDERED: LEVOTHYROXINE NA 125 MCG TABLET (FP) PO SCH (07:00)
[2018-01-06] MEDS ORDERED: LEVOTHYROXINE NA 100 MCG TABLET (FP) ONE (07:25)
[2018-01-06] MEDS ORDERED: LEVOTHYROXINE NA 25 MCG TABLET (FP) ONE (07:25)
[2018-01-06] MEDS: LEVOTHYROXINE 100 MCG, LEVOTHYROXINE 25 MCG PO SCH (07:26)
[2018-01-06] MEDS ORDERED: INSULIN (NOVOLOG) ASPART 100 UNITS/ML 10ML VIAL ONE ×3 (07:31→21:13)
[2018-01-06] MEDS: INSULIN (NOVOLOG) ASPART 100 UNITS/ML 10ML VIAL SQ SCH ×3 (07:31→17:59)
[2018-01-06] MEDS ORDERED: METHADONE HCL 5 MG TABLET (FOR DETOX USE ONLY) PO ONE (10:00)
[2018-01-06 10:41] LABS: CHLORIDE 95 mmol/L (98-107); POTASSIUM 5.3 mmol/L (3.5-5.1); SODIUM 133 mmol/L (136-145)
[2018-01-06] MEDS: TAMSULOSIN HCL 0.4 MG CAP.ER.24H (FP) PO SCH (11:04)
[2018-01-06] MEDS: ENALAPRIL MALEATE 5 MG TABLET (FP) PO SCH (11:05)
[2018-01-06] MEDS: PRENATAL VITAMINS W/ FOLIC ACID TABLET (FP) PO SCH (11:06)
[2018-01-06] MEDS: ASPIRIN 81 MG CHEWABLE TABLETS PO SCH (11:06)
[2018-01-06 11:10] LABS: ALBUMIN 3.4 g/dl (3.4-5.0); ALK PHOS 111 U/L (45-117); ANION GAP 9 (8-16); BILIRUBIN,TOTAL 0.7 mg/dL (0.2-1.0); BLOOD UREA NITROGEN 20 mg/dL (7-18); CALCIUM 9.2 mg/dL (8.5-10.1); CO2 29 mmol/L (21-32); CREATININE 1.2 mg/dL (0.7-1.3); SGOT/AST 35 U/L (15-37); SGPT/ALT 50 U/L (12-78); TOT PROT 6.3 g/dl (6.4-8.2)
--- NOTE | 2018-01-06 11:14 | PN ---
S Progress Note (SOAP) Subjective: Interrupted sleep, anxiety and generalized malaise Objective: 01/06/18 11:13 Last Vital Signs Temp Pulse Resp BP Pulse Ox 98.3 F 106 H 18 105/67 01/06/18 10:15 01/06/18 10:15 01/06/18 10:15 01/06/18 10:15 Laboratory Last Values WBC 4.3 K/mm3 (4.0-10.0) 01/04/18 08:00 RBC 4.99 M/mm3 (4.00-5.60) 01/04/18 08:00 Hgb 15.8 GM/dL (11.7-16.9) 01/04/18 08:00 Hct 48.7 % (35.4-49) D 01/04/18 08:00 MCV 97.5 fl (80-96) H 01/04/18 08:00 MCH 31.6 pg (25.7-33.7) 01/04/18 08:00 MCHC 32.4 g/dl (32.0-35.9) 01/04/18 08:00 RDW 13.7 % (11.9-15.9) 01/04/18 08:00 Plt Count 219 K/MM3 (134-434) 01/04/18 08:00 MPV 10.0 fl (7.5-11.1) 01/04/18 08:00 Sodium 135 mmol/L (136-145) L 01/05/18 07:00 Potassium 5.4 mmol/L (3.5-5.1) H 01/05/18 07:00 Chloride 100 mmol/L (98-107) 01/05/18 07:00 Carbon Dioxide 24 mmol/L (21-32) 01/05/18 07:00 Anion Gap 11 (8-16) 01/05/18 07:00 BUN 22 mg/dL (7-18) H 01/05/18 07:00 Creatinine 1.1 mg/dL (0.7-1.3) 01/05/18 07:00 Creat Clearance w eGFR > 60 (>60) 01/05/18 07:00 POC Glucometer 363 UNITS (80-120) 01/05/18 21:38 Random Glucose 319 mg/dL (74-106) H* D 01/05/18 07:00 Hemoglobin A1c % 12.1 % (4.8-6.0) H 01/05/18 07:00 Calcium 9.0 mg/dL (8.5-10.1) 01/05/18 07:00 Total Bilirubin 0.6 mg/dL (0.2-1.0) 01/04/18 08:00 AST 22 U/L (15-37) 01/04/18 08:00 ALT 58 U/L (12-78) D 01/04/18 08:00 Alkaline Phosphatase 112 U/L (45-117) 01/04/18 08:00 Total Protein 7.7 g/dl (6.4-8.2) 01/04/18 08:00 Albumin 4.2 g/dl (3.4-5.0) 01/04/18 08:00 Urine Color Ltyellow 01/03/18 01:30 Urine Appearance Clear 01/03/18 01:30 Urine pH 5.0 (5.0-8.0) 01/03/18 01:30 Ur Specific [place] 1.021 (1.001-1.035) 01/03/18 01:30 Urine Protein Negative (NEGATIVE) 01/03/18 01:30 Urine Glucose (UA) 3+ (NEGATIVE) H 01/03/18 01:30 Urine Ketones 2+ (NEGATIVE) H 01/03/18 01:30 Urine Blood 1+ (NEGATIVE) H 01/03/18 01:30 Urine Nitrite Negative (NEGATIVE) 01/03/18 01:30 Urine Bilirubin Negative (<2.0 mg/dL) 01/03/18 01:30 Urine Urobilinogen Negative mg/dL (0.2-1.0) 01/03/18 01:30 Ur Leukocyte Esterase Negative (NEGATIVE) 01/03/18 01:30 Urine WBC (Auto) <1 /hpf (3-5) 01/03/18 01:30 Urine RBC (Auto) <1 /hpf (0-3) 01/03/18 01:30 Hyaline Casts 6 /lpf 01/03/18 01:30 RPR Titer Nonreactive (NONREACTIVE) 01/04/18 08:00 Labs noted Assessment: 01/06/18 11:13 Withdrawal sx Poorly controlled DM Plan: Continue detox Continue DM regimen
[2018-01-06 11:17] LABS: GLUCOSE,RANDOM 554 mg/dL (74-106)
--- NOTE | 2018-01-06 21:34 | PN ---
[facility] Progress Note Note: spoke with patient regarding elevated bgm. client states he is presently on long acting insulin basaglar 20 units. he takes 10 units in the morning and 10 units in the evening. he reports he last took it 9 days ago. will order levemir 20 units tonight for bgm "hi" after 2 bgm readings and 12 units of reg insulin coverage client will start his bid regimen tomorrow. d/w client whom verbalized understanding. continue to monitor clinically.
[2018-01-06] MEDS ORDERED: INSULIN (LEVEMIR) 100 UNITS/ML UNITS SQ ONE (23:00)
[2018-01-06] MEDS: THIAMINE HCL 100 MG TABLET (FP) PO SCH (23:02)
[2018-01-07] MEDS ORDERED: LEVOTHYROXINE NA 25 MCG TABLET (FP) ONE (04:26)
[2018-01-07] MEDS ORDERED: LEVOTHYROXINE NA 100 MCG TABLET (FP) ONE (04:26)
[2018-01-07] MEDS: metFORMIN HCL 500 MG TABLET (FP) PO SCH ×2 (06:19→18:08)
[2018-01-07] MEDS: LEVOTHYROXINE 100 MCG, LEVOTHYROXINE 25 MCG PO SCH (06:19)
[2018-01-07] MEDS: sitaGLIPtin PHOSPHATE 100 MG TABLET (FP) PO SCH (06:19)
[2018-01-07] MEDS ORDERED: INSULIN (LEVEMIR) 100 UNITS/ML UNITS SQ SCH (07:00)
[2018-01-07] MEDS ORDERED: INSULIN (NOVOLOG) ASPART 100 UNITS/ML 10ML VIAL ONE ×3 (07:29→18:06)
[2018-01-07] MEDS: INSULIN SLIDING SCALE (NOVOLOG) 1 VIAL SQ SCH ×3 (07:30→18:09)
[2018-01-07] MEDS: INSULIN (LEVEMIR) 100 UNITS/ML UNITS SQ SCH ×2 (07:31→21:20)
[2018-01-07] MEDS ORDERED: INSULIN (LEVEMIR) 100 UNITS/ML UNITS SQ ONE (07:34)
[2018-01-07] MEDS ORDERED: METHADONE HCL 10 MG TABLET (FOR DETOX USE ONLY) PO ONE (10:00)
[2018-01-07] MEDS: ASPIRIN 81 MG CHEWABLE TABLETS PO SCH (10:44)
[2018-01-07] MEDS: PRENATAL VITAMINS W/ FOLIC ACID TABLET (FP) PO SCH (10:44)
[2018-01-07] MEDS: TAMSULOSIN HCL 0.4 MG CAP.ER.24H (FP) PO SCH (10:44)
[2018-01-07] MEDS: ENALAPRIL MALEATE 5 MG TABLET (FP) PO SCH (10:44)
--- NOTE | 2018-01-07 14:18 | PN ---
[facility] Progress Note (SOAP) Subjective: feeling better no body ache no gi distress no tremor less sweat social with peers in day room discuss aftercare Objective: 01/07/18 14:16 Vital Signs Temperature 97.7 F 01/07/18 06:00 Pulse Rate 68 01/07/18 06:00 Respiratory Rate 18 01/07/18 06:00 Blood Pressure 112/74 01/07/18 06:00 O2 Sat by Pulse Oximetry (%) Laboratory Last Values WBC 4.3 K/mm3 (4.0-10.0) 01/04/18 08:00 RBC 4.99 M/mm3 (4.00-5.60) 01/04/18 08:00 Hgb 15.8 GM/dL (11.7-16.9) 01/04/18 08:00 Hct 48.7 % (35.4-49) D 01/04/18 08:00 MCV 97.5 fl (80-96) H 01/04/18 08:00 MCH 31.6 pg (25.7-33.7) 01/04/18 08:00 MCHC 32.4 g/dl (32.0-35.9) 01/04/18 08:00 RDW 13.7 % (11.9-15.9) 01/04/18 08:00 Plt Count 219 K/MM3 (134-434) 01/04/18 08:00 MPV 10.0 fl (7.5-11.1) 01/04/18 08:00 Sodium 133 mmol/L (136-145) L 01/06/18 08:00 Potassium 5.3 mmol/L (3.5-5.1) H 01/06/18 08:00 Chloride 95 mmol/L (98-107) L 01/06/18 08:00 Carbon Dioxide 29 mmol/L (21-32) D 01/06/18 08:00 Anion Gap 9 (8-16) 01/06/18 08:00 BUN 20 mg/dL (7-18) H 01/06/18 08:00 Creatinine 1.2 mg/dL (0.7-1.3) 01/06/18 08:00 Creat Clearance w eGFR > 60 (>60) 01/06/18 08:00 POC Glucometer 370 UNITS (80-120) 01/07/18 11:20 Random Glucose 554 mg/dL (74-106) H* D 01/06/18 08:00 Hemoglobin A1c % 12.1 % (4.8-6.0) H 01/05/18 07:00 Calcium 9.2 mg/dL (8.5-10.1) 01/06/18 08:00 Total Bilirubin 0.7 mg/dL (0.2-1.0) 01/06/18 08:00 AST 35 U/L (15-37) D 01/06/18 08:00 ALT 50 U/L (12-78) 01/06/18 08:00 Alkaline Phosphatase 111 U/L (45-117) 01/06/18 08:00 Total Protein 6.3 g/dl (6.4-8.2) L 01/06/18 08:00 Albumin 3.4 g/dl (3.4-5.0) 01/06/18 08:00 TSH 0.58 uIU/ml (0.358-3.74) 01/06/18 08:00 Urine Color Ltyellow 01/03/18 01:30 Urine Appearance Clear 01/03/18 01:30 Urine pH 5.0 (5.0-8.0) 01/03/18 01:30 Ur Specific [place] 1.021 (1.001-1.035) 01/03/18 01:30 Urine Protein Negative (NEGATIVE) 01/03/18 01:30 Urine Glucose (UA) 3+ (NEGATIVE) H 01/03/18 01:30 Urine Ketones 2+ (NEGATIVE) H 01/03/18 01:30 Urine Blood 1+ (NEGATIVE) H 01/03/18 01:30 Urine Nitrite Negative (NEGATIVE) 01/03/18 01:30 Urine Bilirubin Negative (<2.0 mg/dL) 01/03/18 01:30 Urine Urobilinogen Negative mg/dL (0.2-1.0) 01/03/18 01:30 Ur Leukocyte Esterase Negative (NEGATIVE) 01/03/18 01:30 Urine WBC (Auto) <1 /hpf (3-5) 01/03/18 01:30 Urine RBC (Auto) <1 /hpf (0-3) 01/03/18 01:30 Hyaline Casts 6 /lpf 01/03/18 01:30 RPR Titer Nonreactive (NONREACTIVE) 01/04/18 08:00 lab [id number] 12.1 repeat K+ 01/07/18 14:22 Assessment: 01/07/18 14:22 mild withdrawal sx Plan: medically supervised detox waiting for K+ serum level
[2018-01-07] MEDS ORDERED: SODIUM POLYSTYRENE SULFONATE 15 GM/60 ML BOTTLE PO ONE (14:45)
[2018-01-07] MEDS: THIAMINE HCL 100 MG TABLET (FP) PO SCH (21:21)
[2018-01-08] MEDS ORDERED: LEVOTHYROXINE NA 25 MCG TABLET (FP) ONE (04:33)
[2018-01-08] MEDS ORDERED: LEVOTHYROXINE NA 100 MCG TABLET (FP) ONE (04:33)
[2018-01-08] MEDS ORDERED: METHADONE HCL 5 MG TABLET (FOR DETOX USE ONLY) PO ONE (06:00)
[2018-01-08] MEDS: metFORMIN HCL 500 MG TABLET (FP) PO SCH (07:00)
[2018-01-08] MEDS: LEVOTHYROXINE 100 MCG, LEVOTHYROXINE 25 MCG PO SCH (07:00)
[2018-01-08] MEDS: sitaGLIPtin PHOSPHATE 100 MG TABLET (FP) PO SCH (07:00)
[2018-01-08] MEDS: INSULIN (LEVEMIR) 100 UNITS/ML UNITS SQ SCH (07:59)
[2018-01-08] MEDS: INSULIN SLIDING SCALE (NOVOLOG) 1 VIAL SQ SCH ×2 (08:01→11:13)
[2018-01-08] MEDS: ENALAPRIL MALEATE 5 MG TABLET (FP) PO SCH (10:08)
[2018-01-08] MEDS: PRENATAL VITAMINS W/ FOLIC ACID TABLET (FP) PO SCH (10:08)
[2018-01-08] MEDS: ASPIRIN 81 MG CHEWABLE TABLETS PO SCH (10:08)
[2018-01-08] MEDS: TAMSULOSIN HCL 0.4 MG CAP.ER.24H (FP) PO SCH (10:08)
--- NOTE | 2018-01-08 11:07 | PN ---
[facility] Progress Note (SOAP) Subjective: alert,no complaint Objective: 01/08/18 11:05 Vital Signs Temperature 97.9 F 01/08/18 06:47 Pulse Rate 60 01/08/18 06:47 Respiratory Rate 18 01/08/18 06:47 Blood Pressure 128/79 01/08/18 06:47 O2 Sat by Pulse Oximetry (%) Assessment: 01/08/18 11:05 detox completed,no withdrawal symptom 01/08/18 11:06 bgm 210 Plan: discharge today,follow up with [facility] as arrangement
--- NOTE | 2018-01-08 11:10 | DS ---
[facility] Detox Discharge Summary Admission Date: 01/03/18 Discharge Date: 01/08/18 - History Present History: Opioid Dependence Additional Comments: follow up with [facility] as arrangement Pertinent Past History: type 2 dm essential hypertension hyperlipidemia bph - Physical Exam Results Vital Signs: Vital Signs Temperature 97.9 F 01/08/18 06:47 Pulse Rate 60 01/08/18 06:47 Respiratory Rate 18 01/08/18 06:47 Blood Pressure 128/79 01/08/18 06:47 O2 Sat by Pulse Oximetry (%) Pertinent Admission Physical Exam Findings: withdrawal signs and symptom - Treatment Hospital Course: Detox Protocol Followed, Detoxed Safely, Responded well, Discharged Condition Good, Rehab Referral Accepted Patient has Accepted a Rehab Referral to: [facility] - Medication Discharge Medications: Ambulatory Orders Aspirin [ASA -] 81 mg PO DAILY 03/30/15 Enalapril Maleate [Vasotec -] 5 mg PO DAILY 03/30/15 Tamsulosin HCl 0.4 mg PO DAILY #30 cap.er.24h 04/03/15 Insulin Lispro [Humalog Kwikpen U-100] 10 units SQ BID 01/03/18 - Diagnosis (1) Opioid dependence with withdrawal Current Visit: Yes Status: Acute (2) IDDM (insulin dependent diabetes mellitus) Current Visit: Yes Status: Acute (3) Essential hypertension Current Visit: Yes Status: Chronic (4) Hyperlipidemia Current Visit: Yes Status: Chronic Qualifiers: Hyperlipidemia type: pure hypercholesterolemia Qualified Code(s): E78.00 - Pure hypercholesterolemia, unspecified (5) bph Current Visit: Yes Status: Chronic (6) Nicotine dependence Current Visit: Yes Status: Acute - AMA Did Patient Leave Against Medical Advice: No
--- NOTE | 2018-01-08 11:22 | PN ---
[facility] Progress Note Note: patient to be followed up by primary care provider and encrinologist for medical management and diabetic management
[2018-01-08 11:28] VITALS: BP 129/75; PULSE 82; TEMP 97.7
== END 2018-01-08 11:38 | disposition home or self-care (01) | DRG 773 ==
LOC: YASAS 14:33 → Y6N 20:12
PROVIDERS: ADMIT Surgery; ATTEND Surgery
PROC: HZ2ZZZZ Detoxification Services for Substance Abuse Treatment (ICD-10-PCS; principal; 2018-01-03)
DX: F11.23 Opioid dependence with withdrawal (principal); F17.210 Nicotine dependence, cigarettes, uncomplicated; E11.9 Type 2 diabetes mellitus without complications; Z79.4 Long term (current) use of insulin; E78.00 Pure hypercholesterolemia, unspecified; I10 Essential (primary) hypertension; N40.0 Benign prostatic hyperplasia without lower urinary tract symptoms; R63.4 Abnormal weight loss; Z68.24 Body mass index [BMI] 24.0-24.9, adult
CPT/HCPCS: 36415; 80048; 80053; 81003; 81015; 82962; 83036; 84443; 85027; 86593; 93005; 93010